=== PATIENT | male | born 1990 | race Caucasian/White ===

== ENCOUNTER 2017-08-16 09:56 | Emergency (ER) | payer SELFPAY ==
[~2017-08-16] VITALS: Ht 182.9 cm; Wt 86.0 kg
[~2017-08-16 09:56] MED LIST: ALL220TA PO; BENZ100 OR; IBUP800T23 PO; Z.0.NO CURRENT MEDS
[2017-08-16 10:04] VITALS: BP 122/72; PULSE 95; RESP 18; TEMP 97.9; O2SAT 97
[2017-08-16] MEDS ORDERED: diphenhydrAMINE HCL 50 MG CAP PO ONE (11:00)
[2017-08-16] MEDS ORDERED: predniSONE 50 MG TAB PO ONE (11:00)
[2017-08-16] MEDS ORDERED: PRED10 PO (11:06)
--- NOTE | 2017-08-16 11:06 | PD ---
HPI Chief Complaint: Skin Problem Time Seen by Provider: 10:42 Travel History International Travel<30 days: No Contact w/Intl Traveler<30days: No Traveled to known affect area: No History of Present Illness HPI 27-year-old male presents emergency department for evaluation of pruritic lesions that are diffuse across his body that is been present for approximately 4 days. Patient states that he recently returned from [place] after a 3 month stay in a rented home, came home and developed these lesions. Patient believes an allergic reaction. Says that he likely switch soaps and detergents which resulted in these lesions. Patient actually causes hives. Patient says that he took Benadryl on Tuesday and Tuesday with some improvement however, they are persistent despite [id number] topical and oral medications. Patient says that he lives in this area and owns a home so he has not been to any outside hotels or unfamiliar places. He denies any fever, chills, nausea, vomiting or diarrhea. He denies any other symptoms today. Denies any chronic medical issues. PFSH Past Medical History Medical History: Denies Significant Hx Diminished Hearing: No Tetanus Vaccination: Unknown Past Surgical History Surgical History: No Previous Surgery Social History Alcohol Use: No Tobacco Use: No Substance Use: Yes Allergies-Medications (Allergen,Severity, Reaction): Coded Allergies: No Known Allergies (Verified Adverse Reaction, Unknown, 08/16/17) Reported Meds & Prescriptions Reported Meds & Active Scripts Active Prednisone 10 Mg Tab 10 Mg PO DAILY 5 Days Review of Systems Except as stated in HPI: all other systems reviewed are Neg Physical Exam Narrative GENERAL: Well-nourished, well-developed patient. SKIN: Focused skin assessment warm/dry. Scattered, diffuse small papules over her body. No obvious burrows noted in the hands or fingers. Some areas with papules becoming confluent. No significant edema or erythema. HEAD: Normocephalic. EYES: No scleral icterus. No injection or drainage. NECK: Supple, trachea midline. No JVD or lymphadenopathy. CARDIOVASCULAR: Regular rate and rhythm without murmurs, gallops, or rubs. RESPIRATORY: Breath sounds equal bilaterally. No accessory muscle use. MUSCULOSKELETAL: No cyanosis, or edema. BACK: Nontender without obvious deformity. No CVA tenderness. Data Data Last Documented VS Vital Signs Date Time Temp Pulse Resp B/P (MAP) Pulse Ox O2 Delivery O2 Flow Rate FiO2 08/16/17 10:04 97.9 95 18 122/72 (89) 97 Orders Orders Prednisone (Deltasone) (08/16/17 11:00) Diphenhydramine (Benadryl) (08/16/17 11:00) Ed Discharge Order (08/16/17 11:24) MDM Medical Decision Making Medical Screen Exam Complete: Yes Emergency Medical Condition: Yes Differential Diagnosis Allergic dermatitis, allergic reaction, allergies Narrative Course 27-year-old male presents emergency department for evaluation of diffuse skin lesions over his body that started Tuesday. Patient states that he took Benadryl on Tuesday and had some resolution however, says that the lesions have been persistent and are pruritic. He says that she has changed multiple soaps and lotions which may be the cause of this. He denies history of anaphylaxis. Vital signs are stable. Exam findings consistent with multiple small papules over the body with some excoriations. Some areas of papules becoming confluent. Prednisone and Benadryl administered in the emergency department. Says that the lesions have decreased in size but still feels some pruritus. Patient be discharged with prednisone. Advised to continue Benadryl. He may continue use [id number] medications for his pruritus. Consider changing soaps to non-allergy causing. Advised follow-up with primary care physician and dermatitis. Return for worsening persistent symptoms. Diagnosis Primary Impression: Allergic dermatitis Referrals: [facility] Physician Additional Instructions: Take medications as prescribed. Continue Benadryl per package instructions. Follow-up with primary care physician and consider dermatology for evaluation of possible skin reaction. Return to emergency department worsening or persistent symptoms. Scripts Prednisone (Prednisone) 10 Mg Tab 10 MG PO DAILY for 5 Days, #5 TAB 0 Refills Prov: Camron Golden MD 08/16/17 Disposition: 01 DISCHARGE HOME Condition: Stable Gayle Haas Aug 16, 2017 11:06
== END 2017-08-16 11:43 | disposition home or self-care (01) ==
LOC: PHEFT 09:56
DX: L23.9 Allergic contact dermatitis, unspecified cause (principal)
CPT/HCPCS: 99283; J7512; Q0163